=== PATIENT | male | born 1970 | race Caucasian/White ===

== ENCOUNTER 2022-02-05 11:01 | Emergency (ER) | payer OTHER ==
[2022-02-05 11:51] LABS: HEMOGLOBIN 14.3 gm/dl (14.0-17.5); RED BLOOD COUNT 4.59 M/UL (4.20-5.50); WHITE BLOOD COUNT 10.7 K/UL (4.5-11.0)
[2022-02-05 12:19] LABS: BUN/CREATININE RATIO 17 (0-10)
== END 2022-02-05 16:45 | disposition left against medical advice (07) ==
LOC: ER1 11:01
PROVIDERS: Physician Assistant
DX: F32.A Depression, unspecified (principal); M25.462 Effusion, left knee; Z88.8 Allergy status to other drugs, medicaments and biological substances; F17.200 Nicotine dependence, unspecified, uncomplicated
CPT/HCPCS: 73564; 80053; 80307; 85025; 99283; G0480